=== PATIENT | female | born 1985 | race Caucasian/White ===

== ENCOUNTER 2021-03-29 11:56 | Emergency (ER) | payer OTHER ==
[~2021-03-29 11:56] MED LIST: AMOXICILLIN500 M1 PO; ANTIVERT 25MG T25 MG PO; ENOXAPARIN40 MG/0.4 SC; MACROBID 100 M100 MG PO; PERCOCET 5-3251 EACH PO; TYLENOL 8 HOUR650 MG PO; ZOFRAN4 MG PO; ZYRTEC10 MG PO
[2021-03-29] MEDS ORDERED: NAPROSYN500 MG PO (13:32)
[2021-03-29] MEDS ORDERED: CYCLOBENZAPRINE5 MG PO (13:32)
== END 2021-03-29 13:39 | disposition home or self-care (01) ==
LOC: ER1 11:56
DX: M26.621 Arthralgia of right temporomandibular joint (principal); I10 Essential (primary) hypertension; K21.9 Gastro-esophageal reflux disease without esophagitis; F17.200 Nicotine dependence, unspecified, uncomplicated; Z86.73 Personal history of transient ischemic attack (TIA), and cerebral infarction without residual deficits; Z88.6 Allergy status to analgesic agent
CPT/HCPCS: 70110; 99283

== ENCOUNTER 2021-05-22 12:58 | Emergency (ER) | payer OTHER ==
[~2021-05-22 12:58] MED LIST changes: +CYCLOBENZAPRINE5 MG PO; +NAPROSYN500 MG PO
[2021-05-22 15:11] LABS: HEMOGLOBIN 14.2 gm/dl (12.3-15.3); RED BLOOD COUNT 4.17 M/UL (4.00-5.10); WHITE BLOOD COUNT 6.1 K/UL (4.5-11.0)
[2021-05-22 15:47] LABS: BUN/CREATININE RATIO 22 (0-10)
[2021-05-22] MEDS ORDERED: MACROBID 100 M100 MG PO (15:56)
== END 2021-05-22 16:17 | disposition home or self-care (01) ==
LOC: ER1 12:58
PROVIDERS: Preventive Medicine Occupational Medicine
DX: G43.B0 Ophthalmoplegic migraine, not intractable (principal); N39.0 Urinary tract infection, site not specified; F17.210 Nicotine dependence, cigarettes, uncomplicated
CPT/HCPCS: 70450; 71045; 80053; 81001; 83690; 85025; 85652; 86140; 87077; 87086; 87186; 99284

== ENCOUNTER 2021-07-09 11:20 | Emergency (ER) | payer OTHER ==
[2021-07-09] MEDS ORDERED: SILVADENE CREAM20 GM TOP (13:28)
== END 2021-07-09 13:30 | disposition home or self-care (01) ==
LOC: ER1 11:20
DX: T23.102A Burn of first degree of left hand, unspecified site, initial encounter (principal); T20.10XA Burn of first degree of head, face, and neck, unspecified site, initial encounter; T31.0 Burns involving less than 10% of body surface; I10 Essential (primary) hypertension; Z88.5 Allergy status to narcotic agent; Z90.710 Acquired absence of both cervix and uterus; X12.XXXA Contact with other hot fluids, initial encounter
CPT/HCPCS: 99283

== ENCOUNTER 2021-08-05 05:46 | Emergency (ER) | payer OTHER ==
[~2021-08-05 05:46] MED LIST changes: +SILVADENE CREAM20 GM TOP
== END 2021-08-05 07:00 | disposition home or self-care (01) ==
LOC: ER1 05:46
DX: S01.81XA Laceration without foreign body of other part of head, initial encounter (principal); F17.210 Nicotine dependence, cigarettes, uncomplicated; Z88.5 Allergy status to narcotic agent; Z88.6 Allergy status to analgesic agent; Y08.89XA Assault by other specified means, initial encounter
CPT/HCPCS: 12013; 70450; 71045; 99285

== ENCOUNTER 2021-09-27 11:37 | Emergency (ER) | payer OTHER ==
[2021-09-27] MEDS ORDERED: IBUPROFEN600 MG PO (13:26)
== END 2021-09-27 13:36 | disposition home or self-care (01) ==
LOC: ER1 11:37
DX: S89.91XA Unspecified injury of right lower leg, initial encounter (principal); I10 Essential (primary) hypertension; F17.210 Nicotine dependence, cigarettes, uncomplicated; Z86.73 Personal history of transient ischemic attack (TIA), and cerebral infarction without residual deficits; Z90.710 Acquired absence of both cervix and uterus; Z79.899 Other long term (current) drug therapy; Z88.5 Allergy status to narcotic agent; Z88.6 Allergy status to analgesic agent; W19.XXXA Unspecified fall, initial encounter
CPT/HCPCS: 29530; 73564; 99283

== ENCOUNTER 2021-12-07 15:00 | Emergency (ER) | payer OTHER ==
[~2021-12-07 15:00] MED LIST changes: +IBUPROFEN600 MG PO
[2021-12-07] MEDS ORDERED: AUGMENTIN 875-1 EACH PO (15:21)
== END 2021-12-07 15:32 | disposition home or self-care (01) ==
LOC: ER1 15:00
DX: K08.89 Other specified disorders of teeth and supporting structures (principal); F17.200 Nicotine dependence, unspecified, uncomplicated; Z88.8 Allergy status to other drugs, medicaments and biological substances
CPT/HCPCS: 99282

== ENCOUNTER 2022-03-27 16:57 | Emergency (ER) | payer OTHER ==
[~2022-03-27 16:57] MED LIST changes: +AUGMENTIN 875-1 EACH PO
[2022-03-27 18:14] LABS: HEMOGLOBIN 13.3 gm/dl (12.3-15.3); RED BLOOD COUNT 4.13 M/UL (4.00-5.10); WHITE BLOOD COUNT 6.3 K/UL (4.5-11.0)
[2022-03-27 18:32] LABS: BUN/CREATININE RATIO 21 (0-10)
== END 2022-03-28 12:20 | disposition short-term general hospital (02) ==
LOC: ER1 16:57
PROVIDERS: Physician Assistant
DX: T43.591A Poisoning by other antipsychotics and neuroleptics, accidental (unintentional), initial encounter (principal); I10 Essential (primary) hypertension; F41.9 Anxiety disorder, unspecified; F17.200 Nicotine dependence, unspecified, uncomplicated; E87.6 Hypokalemia; Z20.822 Contact with and (suspected) exposure to COVID-19
CPT/HCPCS: 80053; 80307; 81001; 82550; 82553; 84484; 84703; 85025; 87086; 93005; 96360; 99285; G0480; U0002